=== PATIENT | male | born 1955 | race Caucasian/White ===

== ENCOUNTER 2018-11-01 14:55 | Emergency (ER) | payer MEDICARE, SELFPAY ==
[~2018-11-01] VITALS: Ht 180.3 cm; Wt 81.7 kg
[2018-11-01] MEDS ORDERED: ATOR10 PO (15:46)
[2018-11-01] MEDS ORDERED: ASPI81CH PO (15:46)
[2018-11-01] MEDS ORDERED: CEPH500 PO (16:39)
== END 2018-11-01 17:37 | disposition home or self-care (01) ==
LOC: ER 14:55
DX: S61.012A Laceration without foreign body of left thumb without damage to nail, initial encounter (principal); Z23 Encounter for immunization; Z79.82 Long term (current) use of aspirin; W45.8XXA Other foreign body or object entering through skin, initial encounter
CPT/HCPCS: 12001; 90471; 90714; 99282-25

== ENCOUNTER 2020-07-03 08:42 | Emergency (ER) | payer MEDICARE, SELFPAY ==
[~2020-07-03] VITALS: Ht 180.3 cm; Wt 81.7 kg
[~2020-07-03 08:42] MED LIST: ASPI81CH PO; ASPIR 8181 M1 PO; ATOR10 PO; CEFD300 PO; CEPH500 PO; EUTHYROX25 MCG PO; FINA5 PO; FISH OIL 1,201200 MG PO; Flomax0.4 MG PO; IBUP400 PO; LOPE2C PO; Norco 5-325 Ta1 EACH PO; PROBIOTIC1 EAC7 PO; Pyridium200 MG PO; TAMS.4ER PO; Zofran4 MG PO; [UNRECOGNIZED DRUG - OTHER] PO
== END 2020-07-03 12:30 | disposition home or self-care (01) ==
LOC: ER 08:42
DX: S61.213A Laceration without foreign body of left middle finger without damage to nail, initial encounter (principal); S66.103A Unspecified injury of flexor muscle, fascia and tendon of left middle finger at wrist and hand level, initial encounter; W45.8XXA Other foreign body or object entering through skin, initial encounter
CPT/HCPCS: 12002; 73140; 99283-25

== ENCOUNTER 2020-07-05 14:34 | Day surgery (SDC) | payer MEDICARE, SELFPAY ==
[~2020-07-05] VITALS: Ht 180.3 cm; Wt 78.9 kg
--- NOTE | 2020-07-05 15:34 | NUR ---
07/05/20 1534 Seda Clifton CALL LIGHT WITHIN REACH
--- NOTE | 2020-07-05 17:06 | NUR ---
07/05/20 1706 Kiki Husain SUTURES REMOVED AFTER PREP PER SURGEON REQUEST.
== END 2020-07-05 18:29 | disposition home or self-care (01) ==
LOC: ORSCSDS 14:34
PROVIDERS: Orthopaedic Surgery
PROC: 0HXGXZZ Transfer Left Hand Skin, External Approach (ICD-10-PCS; principal; 2020-07-05 15:45)
PROC: 0LQ80ZZ Repair Left Hand Tendon, Open Approach (ICD-10-PCS; principal; 2020-07-05 15:45)
DX: S61.213A Laceration without foreign body of left middle finger without damage to nail, initial encounter (principal); E78.5 Hyperlipidemia, unspecified; Z79.899 Other long term (current) drug therapy
CPT/HCPCS: J0690; J1100; J2250; J2370; J2405; J2704; J2795; J3010; J7120

== ENCOUNTER → 2021-04-30 | Outpatient (CLI) | payer MEDICARE, OTHER ==
[2021-04-30 15:18] LABS: BASOPHILS ABSOLUTE AUTO 0.02 K/mm3 (0.00-0.23); BASOPHILS PERCENT AUTO 0 % (0-2); EOSINOPHILS ABSOLUTE AUTO 0.04 K/mm3 (0.00-0.68); EOSINOPHILS PERCENT AUTO 1 % (0-6); Hematocrit 42.4 % (37.0-53.0); Hemoglobin 14.1 g/dL (13.5-17.5); IMMATURE GRAN ABSOLUTE AUTO 0.01 K/mm3 (0.00-0.10); IMMATURE GRAN PERCENT AUTO 0 % (0-1); LYMPHOCYTES ABSOLUTE AUTO 1.72 K/mm3 (0.84-5.20); LYMPHOCYTES PERCENT AUTO 36 % (21-46); MONOCYTES ABSOLUTE AUTO 0.48 K/mm3 (0.16-1.47); MONOCYTES PERCENT AUTO 10 % (4-13); Mean Corpuscular HGB 30.2 pg (26.0-34.0); Mean Corpuscular HGB Conc 33.3 g/dL (31.5-36.5); Mean Corpuscular Volume 91 fL (80-100); Mean Platelet Volume 10.1 fL (9.1-12.4); NEUTROPHILS ABSOLUTE AUTO 2.49 K/mm3 (1.96-9.15); NEUTROPHILS PERCENT AUTO 52 % (41-73); Platelet Count 221 K/mm3 (150-400); RDW Coefficient Variation 13.6 % (11.7-14.2); RDW Standard Deviation 45.4 fL (35.1-46.3); Red Blood Cell Count 4.67 M/mm3 (4.30-5.90); White Blood Cell Count 4.76 K/mm3 (4.00-11.30)
[2021-04-30 15:35] LABS: Alanine Aminotransfer (ALT/SGP 36 U/L (12-78); Albumin, Blood 3.8 g/dL (3.4-5.0); Albumin/Globulin Ratio 0.9 (0.8-1.8); Alk Phos 69 U/L (50-136); Anion Gap 5 mmol/L (6-16); Aspartate Aminotrans (AST/SGOT 27 U/L (12-37); Bilirubin, Total 0.8 mg/dL (0.1-1.0); Blood Urea Nitrogen 14 mg/dL (8-24); Bun/Creatinine Ratio 15.3 (12.0-20.0); CHOL/HDL RATIO 4.3; CO2, Blood 29 mmol/L (21-32); Calcium, Blood 8.4 mg/dL (8.5-10.1); Chloride, Blood 108 mmol/L (98-108); Cholesterol 175 mg/dL (50-200); Creatinine, Blood 0.91 mg/dL (0.60-1.20); Globulin, Blood 4.2 g/dL (2.2-4.0); Glomerular Filtration Rate >60 (60-); Glucose, Blood 97 mg/dL (70-99); HDL Cholesterol 41 mg/dL (>39); LDL/HDL RATIO 2.8; Low Density Lipoprotein Chol 114 mg/dL (0-110); Potassium, Blood 4.3 mmol/L (3.5-5.5); Sodium, Blood 142 mmol/L (136-145); Triglycerides 99 mg/dL (30-160); Very Low Density Lipoprot Chol 19 mg/dL (6-32)
== END | disposition home or self-care (01) ==
LOC: LAB SHORT 08:50
PROVIDERS: Family Medicine
DX: Z12.5 Encounter for screening for malignant neoplasm of prostate (principal); I10 Essential (primary) hypertension; E78.2 Mixed hyperlipidemia
CPT/HCPCS: 80053; 80061; 85025; G0103

== ENCOUNTER 2023-05-10 11:45 | Emergency (ER) | payer MEDICARE ==
[~2023-05-10] VITALS: Ht 180.3 cm; Wt 79.4 kg
[~2023-05-10 11:45] MED LIST changes: +ACET500 PO; +GABA300 PO; +Robaxin750 MG PO
[2023-05-10 12:59] LABS: BASOPHILS ABSOLUTE AUTO 0.03 K/mm3 (0.00-0.23); BASOPHILS PERCENT AUTO 1 % (0-2); EOSINOPHILS ABSOLUTE AUTO 0.05 K/mm3 (0.00-0.68); EOSINOPHILS PERCENT AUTO 1 % (0-6); Hematocrit 39.1 % (37.0-53.0); Hemoglobin 13.6 g/dL (13.5-17.5); IMMATURE GRAN ABSOLUTE AUTO 0.01 K/mm3 (0.00-0.10); IMMATURE GRAN PERCENT AUTO 0 % (0-1); LYMPHOCYTES ABSOLUTE AUTO 1.88 K/mm3 (0.84-5.20); LYMPHOCYTES PERCENT AUTO 35 % (21-46); MONOCYTES ABSOLUTE AUTO 0.68 K/mm3 (0.16-1.47); MONOCYTES PERCENT AUTO 13 % (4-13); Mean Corpuscular HGB 30.7 pg (26.0-34.0); Mean Corpuscular HGB Conc 34.8 g/dL (31.5-36.5); Mean Corpuscular Volume 88 fL (80-100); Mean Platelet Volume 9.5 fL (9.1-12.4); NEUTROPHILS ABSOLUTE AUTO 2.75 K/mm3 (1.96-9.15); NEUTROPHILS PERCENT AUTO 51 % (41-73); Platelet Count 207 K/mm3 (150-400); RDW Coefficient Variation 13.7 % (11.7-14.2); RDW Standard Deviation 44.7 fL (35.1-46.3); Red Blood Cell Count 4.43 M/mm3 (4.30-5.90)
[2023-05-10 13:08] LABS: Source, Urine Clean Catch
[2023-05-10 13:17] LABS: Albumin, Blood 3.8 g/dL (3.4-5.0); Albumin/Globulin Ratio 0.8 (0.8-1.8); Bilirubin, Total 0.9 mg/dL (0.1-1.0); Calcium, Blood 8.7 mg/dL (8.5-10.1); Creatinine, Blood 0.9 mg/dL (0.60-1.20); Globulin, Blood 4.6 g/dL (2.2-4.0); Potassium, Blood 4.3 mmol/L (3.5-5.5); Total Protein, Blood 8.4 g/dL (6.4-8.2)
[2023-05-10 13:24] LABS: Appearance, Urine Clear (Clear); Bilirubin, Urine Neg (Neg); Blood, Urine Neg (Neg); Glucose Qualitative, Urine Neg (Neg); Ketones, Urine Neg (Neg); Leukocyte Esterase, Urine Neg (Neg); Nitrite, Urine Neg (Neg); Protein, Urine Neg (Neg); Urobilinogen, Urine NORM (Normal)
[2023-05-10 13:50] LABS: Color, Urine Pale Yellow (P-Yellow)
[2023-05-10 15:26] VITALS: BP 176/103
== END 2023-05-10 16:00 | disposition home or self-care (01) ==
LOC: ER 11:45
PROVIDERS: Physician Assistant
DX: M54.9 Dorsalgia, unspecified (principal); N40.0 Benign prostatic hyperplasia without lower urinary tract symptoms; I10 Essential (primary) hypertension; E78.5 Hyperlipidemia, unspecified; Z79.899 Other long term (current) drug therapy
CPT/HCPCS: 80053; 81003; 85025; 99284

== ENCOUNTER 2024-01-30 16:38 | Observation (INO) | payer OTHER, MEDICARE ==
[~2024-01-30] VITALS: Ht 180.3 cm; Wt 73.2 kg
[2024-01-30 17:47] LABS: BASOPHILS ABSOLUTE AUTO 0.02 K/mm3 (0.00-0.23); BASOPHILS PERCENT AUTO 0 % (0-2); EOSINOPHILS ABSOLUTE AUTO 0.01 K/mm3 (0.00-0.68); EOSINOPHILS PERCENT AUTO 0 % (0-6); Hematocrit 39.7 % (37.0-53.0); Hemoglobin 13.5 g/dL (13.5-17.5); IMMATURE GRAN ABSOLUTE AUTO 0.03 K/mm3 (0.00-0.10); IMMATURE GRAN PERCENT AUTO 0 % (0-1); LYMPHOCYTES ABSOLUTE AUTO 1.73 K/mm3 (0.84-5.20); LYMPHOCYTES PERCENT AUTO 21 % (21-46); MONOCYTES ABSOLUTE AUTO 1.15 K/mm3 (0.16-1.47); MONOCYTES PERCENT AUTO 14 % (4-13); Mean Corpuscular Volume 88 fL (80-100); Mean Platelet Volume 9.6 fL (9.1-12.4); NEUTROPHILS ABSOLUTE AUTO 5.39 K/mm3 (1.96-9.15); NEUTROPHILS PERCENT AUTO 65 % (41-73); Platelet Count 181 K/mm3 (150-400); RDW Coefficient Variation 14.5 % (11.7-14.2); RDW Standard Deviation 46.3 fL (35.1-46.3); White Blood Cell Count 8.33 K/mm3 (4.00-11.30)
[2024-01-30 18:03] LABS: Albumin, Blood 4.1 g/dL (3.4-5.0); Bilirubin, Total 1.2 mg/dL (0.1-1.0); Bun/Creatinine Ratio 19.7 (12.0-20.0); Calcium, Blood 8.9 mg/dL (8.5-10.1); Creatinine, Blood 0.91 mg/dL (0.60-1.20); Globulin, Blood 4.2 g/dL (2.2-4.0); Potassium, Blood 3.9 mmol/L (3.5-5.5); Total Protein, Blood 8.3 g/dL (6.4-8.2)
[2024-01-30] MEDS ORDERED: Acetaminophen 500 MG Tab PO ONE (20:30)
[2024-01-30] MEDS ORDERED: Aspirin 81 MG Chew PO ONE (21:35)
[2024-01-30 22:22] LABS: Source, Urine Clean Catch
[2024-01-30] MEDS ORDERED: Nitroglycerin 1 INCH/GM PKT TOP ONE ×2 (22:25→23:25)
[2024-01-30 22:28] LABS: Appearance, Urine Clear (Clear); Bilirubin, Urine Neg (Neg); Blood, Urine Neg (Neg); Color, Urine Pale Yellow (P-Yellow); Glucose Qualitative, Urine Neg (Neg); Ketones, Urine Neg (Neg); Leukocyte Esterase, Urine Neg (Neg); Nitrite, Urine Neg (Neg); Protein, Urine Neg (Neg); Urobilinogen, Urine NORM (Normal); pH, Urine 6.5 (5.0-8.0)
[2024-01-30] MEDS ORDERED: Morphine Sulfate 4 MG/1 ML Injection IV ONE (23:25)
[2024-01-30] MEDS ORDERED: Ondansetron HCl 2 MG / ML 2ML Vial IV ONE (23:25)
[2024-01-30] MEDS ORDERED: Mag Hydrox/AL Hydrox/Simeth 30 ML UDC PO ONE (23:30)
[2024-01-30] MEDS ORDERED: Famotidine 10 MG/ML 2ML Vial IV ONE (23:30)
[2024-01-31] MEDS ORDERED: Acetaminophen 325 MG TABLET PO PRN (01:15)
[2024-01-31] MEDS ORDERED: FentaNYL Citrate 50 MCG/ML 2 ML Injection IV PRN ×2 (01:15→03:40)
[2024-01-31] MEDS ORDERED: Bisacodyl 10 MG Supp PR PRN (01:15)
[2024-01-31] MEDS ORDERED: Magnesium Hydroxide Conc 10 ML UDC PO PRN (01:15)
[2024-01-31] MEDS ORDERED: FLU VACC TS2024-25(6MOS UP)/PF 45 MCG/0.5 ML SYRINGE IM SCH (01:15)
[2024-01-31] MEDS ORDERED: SILDENAFIL CITR20 M1 PO (02:00)
[2024-01-31 02:52] VITALS: BP 149/79
--- NOTE | 2024-01-31 05:51 | NUR ---
SHIFT SUMMARY PATIENT IS ALERT AND ORIENTED. PATIENT HAS HAD NO ACUTE EVENTS THIS SHIFT. VITAL SIGNS REVIEWED. PATIENT IS ADMITTED FOR CHEST PAIN. PATIENT HAS NOT HAD ANY COMPLAINTS OF PAIN, NAUSEA, SOB OR VOMITTING SINCE ARRIVAL TO FLOOR. PATIENT HAS BEEN SLEEPING COMFORTABLE ALL SHIFT SINCE ARRIVAL. PATIENT IS ON TELE WITH NO EVENTS. BED ALARM ON. BED IN LOCKED AND LOWEST POSITION. CALL LIGHT IN PLACE. WILL MONITOR UNTIL SHIFT CHANGE.
[2024-01-31 05:57] LABS: BASOPHILS ABSOLUTE AUTO 0.01 K/mm3 (0.00-0.23); BASOPHILS PERCENT AUTO 0 % (0-2); EOSINOPHILS ABSOLUTE AUTO 0.01 K/mm3 (0.00-0.68); EOSINOPHILS PERCENT AUTO 0 % (0-6); Hematocrit 36.6 % (37.0-53.0); Hemoglobin 12.5 g/dL (13.5-17.5); IMMATURE GRAN ABSOLUTE AUTO 0.04 K/mm3 (0.00-0.10); IMMATURE GRAN PERCENT AUTO 1 % (0-1); LYMPHOCYTES ABSOLUTE AUTO 1.63 K/mm3 (0.84-5.20); LYMPHOCYTES PERCENT AUTO 20 % (21-46); MONOCYTES PERCENT AUTO 16 % (4-13); Mean Corpuscular HGB 30.4 pg (26.0-34.0); Mean Corpuscular HGB Conc 34.2 g/dL (31.5-36.5); Mean Corpuscular Volume 89 fL (80-100); Mean Platelet Volume 9.4 fL (9.1-12.4); NEUTROPHILS ABSOLUTE AUTO 5.32 K/mm3 (1.96-9.15); NEUTROPHILS PERCENT AUTO 64 % (41-73); Platelet Count 151 K/mm3 (150-400); RDW Coefficient Variation 14.6 % (11.7-14.2); RDW Standard Deviation 47.3 fL (35.1-46.3); Red Blood Cell Count 4.11 M/mm3 (4.30-5.90); White Blood Cell Count 8.31 K/mm3 (4.00-11.30)
[2024-01-31 06:33] LABS: Albumin, Blood 3.5 g/dL (3.4-5.0); Albumin/Globulin Ratio 0.9 (0.8-1.8); Bilirubin, Total 1.5 mg/dL (0.1-1.0); Bun/Creatinine Ratio 15.5 (12.0-20.0); Cholesterol 152 mg/dL (50-200); Creatinine, Blood 0.84 mg/dL (0.60-1.20); HDL Cholesterol 50 mg/dL (>39); LDL/HDL RATIO 1.9; Low Density Lipoprotein Chol 93 mg/dL (0-110); Potassium, Blood 4.6 mmol/L (3.5-5.5); Total Protein, Blood 7.5 g/dL (6.4-8.2); Triglycerides 45 mg/dL (30-160); Very Low Density Lipoprot Chol 9 mg/dL (6-32)
[2024-01-31 07:34] VITALS: BP 131/75
[2024-01-31] MEDS ORDERED: Sennosides 8.6 MG Tab PO SCH (09:00)
[2024-01-31] MEDS ORDERED: Enoxaparin 40 MG/0.4 ML SYR SC SCH (09:00)
[2024-01-31] MEDS ORDERED: Atorvastatin 10 MG Tab PO SCH (09:00)
[2024-01-31] MEDS ORDERED: Docusate Sodium 100 MG Cap PO SCH (09:00)
[2024-01-31 09:36] VITALS: BP 146/74
--- NOTE | 2024-01-31 09:36 | NUR ---
THIS RN RECEIVED A CALL FROM [facility] NOTIFIYING THAT THE PATIENT HAS HAD ST AND QRS CHANGES. MD NOTIFIED, EKG PERFORMED, VITALS TAKEN
[2024-01-31] MEDS ORDERED: Aspirin 81 MG Chew PO SCH (11:00)
[2024-01-31 16:21] VITALS: BP 136/78
--- NOTE | 2024-01-31 16:48 | NUR ---
SHIFT NOTE: PT REPORTS IMPROVED PAIN IN CHEST. HE IS IND IN ROOM ON TELE WITH NO ACUTE CHANGES SINCE THIS AM (SEE PREVIOUS NOTE). PT TO BE NPO AT MIDNIGHT FOR SECOND HALF OF STRESS TEST ON 01/31. WILL CONTINUE TO MONITOR AND REPORT TO ONCOMING RN
[2024-01-31] MEDS ORDERED: BROMFENAC BOTHEYES SCH (17:00)
[2024-01-31] MEDS ORDERED: MOXIFLOXACIN BOTHEYES SCH (17:00)
[2024-01-31] MEDS ORDERED: [UNRECOGNIZED DRUG - OTHER] BOTHEYES SCH (17:00)
[2024-01-31 19:23] VITALS: BP 136/71
[2024-02-01 03:42] VITALS: BP 130/77
[2024-02-01 07:31] VITALS: BP 122/84
--- NOTE | 2024-02-01 07:45 | NUR ---
SHIFT SUMMARY PT IS A&OX4, APPRECIATIVE AND COMPLIANT WITH CARES. VSS ON RA. PER TELEMETRY PT IS SR @ 83. NO C/O CP/PRESSURE THIS SHIFT. PT IS TOLERATING A HEART HEALTHY DIET, NPO AFTER MN BESIDES WATER FOR STRESS TEST IN AM. PT IS UP AD JANEY IN ROOM INDEPENDENTLY. PT DID TAKE A SHOWER TONIGHT. VOIDING IN TOILET, NO BM THIS SHIFT. BED IN LOWEST POSITION, CALL LIGHT WITHIN REACH.
[2024-02-01] MEDS ORDERED: Regadenoson 0.4 MG/5 ML SYRINGE ONE (07:57)
[2024-02-01] MEDS ORDERED: Aminophylline 250MG / 10ML 10 ML Vial ONE (07:57)
[2024-02-01 15:27] VITALS: BP 102/89
[2024-02-01] MEDS ORDERED: OMEP20ER PO (15:39)
--- NOTE | 2024-02-01 16:29 | NUR ---
DISCHARGE SUMMARY: PT DC AT 1625. REFUSED WHEELCHAIR. IV AND TELE REMOVED WITHOUT INCIDENT. PT RECEPTIVE TO EDUCATION AND INFORMED ON DISCHARGE PLANS TO FOLLOW UP WITH PCP. CONCERNED WITH NO CONCRETE RESULTS FROM TESTS BUT UNDERSTANDING. PT AOX4 IN GOOD MOOD AND PLEASANT AFFECT. WALKED OUT PATIENT ENTRANCE INTO 'S CAR UNASSISTED.
--- NOTE | 2024-02-01 16:48 | NUR ---
THIS PLATE PAINTER HAS REVIEWED AND AGREES WITH ALL NOTES AND ASSESSMENTS BY MANDI HAWK.
== END 2024-02-01 16:34 | disposition home or self-care (01) ==
LOC: ER 16:38 → MEDS 16:39
PROVIDERS: Family Medicine; Physician Assistant; Student in an Organized Health Care Education/Training Program; ADMIT Internal Medicine
DX: I25.118 Atherosclerotic heart disease of native coronary artery with other forms of angina pectoris (principal); E78.5 Hyperlipidemia, unspecified; G57.63 Lesion of plantar nerve, bilateral lower limbs; Z79.899 Other long term (current) drug therapy
CPT/HCPCS: 36415; 71260; 78452; 80053; 80061; 81003; 83036; 83690; 83735; 83880; 84100; 84484; 85025; 93005; 93010; 93017; 93306; 96372; 96374-59; 96375; 96375-59; 99285-25; A9270; A9500; G0378; J0280; J1650; J2405; J2785; J3010; Q9967

== ENCOUNTER 2024-04-09 17:19 | Observation (INO) | payer OTHER, MEDICARE ==
[~2024-04-09] VITALS: Ht 180.3 cm; Wt 76.4 kg
[~2024-04-09 17:19] MED LIST changes: +OMEP20ER PO; +SILDENAFIL CITR20 M1 PO
[2024-04-09 17:59] LABS: BASOPHILS ABSOLUTE AUTO 0.02 K/mm3 (0.00-0.23); BASOPHILS PERCENT AUTO 0 % (0-2); EOSINOPHILS ABSOLUTE AUTO 0.02 K/mm3 (0.00-0.68); EOSINOPHILS PERCENT AUTO 0 % (0-6); Hematocrit 39.8 % (37.0-53.0); Hemoglobin 13.2 g/dL (13.5-17.5); IMMATURE GRAN ABSOLUTE AUTO 0.01 K/mm3 (0.00-0.10); IMMATURE GRAN PERCENT AUTO 0 % (0-1); LYMPHOCYTES ABSOLUTE AUTO 1.87 K/mm3 (0.84-5.20); LYMPHOCYTES PERCENT AUTO 35 % (21-46); MONOCYTES ABSOLUTE AUTO 0.45 K/mm3 (0.16-1.47); MONOCYTES PERCENT AUTO 9 % (4-13); Mean Corpuscular HGB Conc 33.2 g/dL (31.5-36.5); Mean Corpuscular Volume 91 fL (80-100); Mean Platelet Volume 9.7 fL (9.1-12.4); NEUTROPHILS ABSOLUTE AUTO 2.95 K/mm3 (1.96-9.15); NEUTROPHILS PERCENT AUTO 55 % (41-73); Platelet Count 166 K/mm3 (150-400); RDW Coefficient Variation 14.2 % (11.7-14.2); RDW Standard Deviation 46.8 fL (35.1-46.3); White Blood Cell Count 5.32 K/mm3 (4.00-11.30)
[2024-04-09 18:24] LABS: Albumin, Blood 3.9 g/dL (3.4-5.0); Albumin/Globulin Ratio 0.9 (0.8-1.8); Bilirubin, Total 0.7 mg/dL (0.1-1.0); Bun/Creatinine Ratio 23.2 (12.0-20.0); Calcium, Blood 8.7 mg/dL (8.5-10.1); Creatinine, Blood 0.91 mg/dL (0.60-1.20); Globulin, Blood 4.4 g/dL (2.2-4.0); Potassium, Blood 3.9 mmol/L (3.5-5.5); Total Protein, Blood 8.3 g/dL (6.4-8.2)
[2024-04-09] MEDS ORDERED: Ondansetron HCl 2 MG / ML 2ML Vial IV PRN (20:55)
[2024-04-09] MEDS ORDERED: FLU VACC TS2024-25(6MOS UP)/PF 45 MCG/0.5 ML SYRINGE IM ONE (22:00)
[2024-04-09 22:08] VITALS: BP 169/86
[2024-04-10 05:26] VITALS: BP 154/93
[2024-04-10] MEDS ORDERED: Omeprazole 20 MG CapCR PO SCH (06:00)
--- NOTE | 2024-04-10 06:22 | NUR ---
SHIFT SUMMARY PATIENT IS ALERT AND ORIENTED. PATIENT HAS HAD NO ACUTE EVENTS THIS SHIFT. VITAL SIGNS REVIEWED. PATIENT HAD A SYNCOPE EPISODE PRIOR TO ARRIVAL TO ADMISSION. PATIENT IS AWAITING A ZIO PATCH BEFORE DISCHARGE. PATIENT HAS NO COMPLAINTS OF PAIN, NAUSEA, SOB OR VOMITTING. BED IN LOCKED AND LOWEST POSITION. CALL LIGHT IN PLACE. WILL MONITOR UNTIL SHIFT CHANGE.
[2024-04-10 08:13] VITALS: BP 167/79
[2024-04-10] MEDS ORDERED: Enoxaparin 40 MG/0.4 ML SYR SC SCH (09:00)
[2024-04-10] MEDS ORDERED: Atorvastatin 10 MG Tab PO SCH (09:00)
[2024-04-10] MEDS ORDERED: Acetaminophen 325 MG TABLET PO PRN (11:55)
--- NOTE | 2024-04-10 15:47 | NUR ---
SHIFT SUMMARY MR ESCOBAR HAS A MILD HEADACHE, TYLENOL DIDN'T HELP. HE DENIES ANY CHEST PAIN, NO DIZZYNESS. HE AMBULATED IN THE HALLS WITHOUT ANY FEELINGS OF DIZZYNESS. SINUS DEE/ SINUS RHYTHM ON TELE, NO CALLS FROM BIOINFORMATICS ENGINEER. GOOD APPETITE, NO NAUSEA. BED LOW, CALL LIGHT IN REACH.
[2024-04-10 16:05] VITALS: BP 144/83
[2024-04-10 19:25] VITALS: BP 150/80
[2024-04-11 03:57] VITALS: BP 133/80
--- NOTE | 2024-04-11 07:21 | NUR ---
AAOX4, INDEPENDENT IN ROOM. TELE IN PLACE SR 62. SLEPT THROUGHOUT THE NIGHT, UNEVENTFUL NIGHT. PLAN OF CARE IS DC HOME WITH LONNIE PATCH.
[2024-04-11 07:42] VITALS: BP 140/83
[2024-04-11] MEDS ORDERED: Levothyroxine Sodium 0.125 MG Tab PO SCH (08:00)
[2024-04-11] MEDS ORDERED: Losartan Potassium 50 MG Tab PO SCH (09:00)
[2024-04-11] MEDS ORDERED: Levothyroxine Sodium 0.025 MG Tab PO SCH (11:00)
[2024-04-11] MEDS ORDERED: LOSA25 PO (12:02)
[2024-04-11] MEDS ORDERED: LEVSOD25 PO (12:02)
--- NOTE | 2024-04-11 12:55 | NUR ---
DISCHARGE NOTE- PT WAS GIVEN VERBAL AND WRITTEN DISCHARGE INSTRUCTIONS AND ACKNOWLEDGED UNDERSTANDING OF THEM. PT HAD HIS ZIO PATCH PLACED BY THE [facility], IV AND TELE WERE DC'D PRIOR TO DISCHARGE. PT DRESSED HIMSELF AND WAS ESCORTED OUT VIA WC. NO S&S OF DISTRESS NOTED AT THE TIME OF DISCHARGE.
[2024-04-12] MEDS ORDERED: Losartan Potassium 25 MG Tab PO SCH (09:00)
== END 2024-04-11 12:54 | disposition home or self-care (01) ==
LOC: ER 17:19 → MEDS 17:20
PROVIDERS: Emergency Medicine; ADMIT Internal Medicine
DX: R55 Syncope and collapse (principal); R94.31 Abnormal electrocardiogram [ECG] [EKG]; I44.7 Left bundle-branch block, unspecified; R00.1 Bradycardia, unspecified; I10 Essential (primary) hypertension; E03.9 Hypothyroidism, unspecified; E78.5 Hyperlipidemia, unspecified; K21.9 Gastro-esophageal reflux disease without esophagitis; N40.0 Benign prostatic hyperplasia without lower urinary tract symptoms; Z79.899 Other long term (current) drug therapy
CPT/HCPCS: 36415; 70450; 71046; 80053; 83735; 84439; 84443; 84484; 85025; 93005; 93010; 93246; 96372; 99285-25; A9270; G0378; J1650

== ENCOUNTER 2024-06-03 18:31 | Inpatient (IN) | payer OTHER, MEDICARE ==
[~2024-06-03] VITALS: Ht 180.3 cm; Wt 77.1 kg
[~2024-06-03 18:31] MED LIST changes: +Enoxaparin 40 MG/0.4 ML SYR SC SCH; +LEVSOD25 PO; +LOSA25 PO
[2024-06-03 19:56] LABS: BASOPHILS ABSOLUTE AUTO 0.01 K/mm3 (0.00-0.23); BASOPHILS PERCENT AUTO 0 % (0-2); EOSINOPHILS ABSOLUTE AUTO 0.06 K/mm3 (0.00-0.68); EOSINOPHILS PERCENT AUTO 1 % (0-6); Hematocrit 39.2 % (37.0-53.0); IMMATURE GRAN ABSOLUTE AUTO 0.02 K/mm3 (0.00-0.10); IMMATURE GRAN PERCENT AUTO 0 % (0-1); LYMPHOCYTES PERCENT AUTO 39 % (21-46); MONOCYTES ABSOLUTE AUTO 0.55 K/mm3 (0.16-1.47); MONOCYTES PERCENT AUTO 11 % (4-13); Mean Corpuscular HGB 30.2 pg (26.0-34.0); Mean Corpuscular HGB Conc 33.2 g/dL (31.5-36.5); Mean Corpuscular Volume 91 fL (80-100); NEUTROPHILS ABSOLUTE AUTO 2.38 K/mm3 (1.96-9.15); NEUTROPHILS PERCENT AUTO 48 % (41-73); Platelet Count 158 K/mm3 (150-400); RDW Coefficient Variation 14.6 % (11.7-14.2); RDW Standard Deviation 48.9 fL (35.1-46.3); White Blood Cell Count 4.92 K/mm3 (4.00-11.30)
[2024-06-03 20:20] LABS: Albumin, Blood 3.9 g/dL (3.4-5.0); Albumin/Globulin Ratio 0.9 (0.8-1.8); Bilirubin, Total 0.6 mg/dL (0.1-1.0); Bun/Creatinine Ratio 21.4 (12.0-20.0); Calcium, Blood 8.6 mg/dL (8.5-10.1); Creatinine, Blood 0.94 mg/dL (0.60-1.20); Globulin, Blood 4.3 g/dL (2.2-4.0); Potassium, Blood 3.9 mmol/L (3.5-5.5); Total Protein, Blood 8.2 g/dL (6.4-8.2)
[2024-06-03] MEDS ORDERED: FLU VACC TS2024-25(6MOS UP)/PF 45 MCG/0.5 ML SYRINGE IM ONE (23:15)
[2024-06-03] MEDS ORDERED: NS 1,000 ML IV SCH (23:15)
[2024-06-03] MEDS ORDERED: Ondansetron HCl 2 MG / ML 2ML Vial IV PRN (23:15)
[2024-06-03 23:59] LABS: Magnesium, Blood 1.9 mg/dL (1.6-2.4)
[2024-06-04] VITALS (14 sets, daily range): BP systolic 120–158; BP diastolic 64–85
--- NOTE | 2024-06-04 05:44 | NUR ---
SHIFT SUMMARY PT ARRIVED TO UNIT AT 0445. A&OX4. VSS ON RA. PT ON TELE RUNNING SB 48-50's. PT HAS NO C/O CP, SOB, DIZZINESS, NAUSEA OF ANY SORTS. PT STATING HE FEELS FINE NOW. PT AMBULATING TO BATHROOM WITH NURSES ASSIST WHILE HOOKED UP TO FLUIDS. NS RUNNING @ 75CC/HR. NO FURTHER QUESTIONS OR CONCERNS AT THIS TIME. WILL REPORT TO ONCOMING NURSE.
[2024-06-04 07:25] LABS: BASOPHILS ABSOLUTE AUTO 0.01 K/mm3 (0.00-0.23); BASOPHILS PERCENT AUTO 0 % (0-2); EOSINOPHILS ABSOLUTE AUTO 0.06 K/mm3 (0.00-0.68); EOSINOPHILS PERCENT AUTO 2 % (0-6); Hematocrit 36.5 % (37.0-53.0); Hemoglobin 12.3 g/dL (13.5-17.5); IMMATURE GRAN ABSOLUTE AUTO 0.01 K/mm3 (0.00-0.10); IMMATURE GRAN PERCENT AUTO 0 % (0-1); LYMPHOCYTES ABSOLUTE AUTO 1.74 K/mm3 (0.84-5.20); LYMPHOCYTES PERCENT AUTO 44 % (21-46); MONOCYTES ABSOLUTE AUTO 0.51 K/mm3 (0.16-1.47); MONOCYTES PERCENT AUTO 13 % (4-13); Mean Corpuscular HGB 30.8 pg (26.0-34.0); Mean Corpuscular HGB Conc 33.7 g/dL (31.5-36.5); Mean Corpuscular Volume 91 fL (80-100); Mean Platelet Volume 9.3 fL (9.1-12.4); NEUTROPHILS ABSOLUTE AUTO 1.59 K/mm3 (1.96-9.15); NEUTROPHILS PERCENT AUTO 41 % (41-73); Platelet Count 143 K/mm3 (150-400); RDW Coefficient Variation 14.6 % (11.7-14.2); RDW Standard Deviation 49.1 fL (35.1-46.3); White Blood Cell Count 3.92 K/mm3 (4.00-11.30)
[2024-06-04 07:51] LABS: Albumin, Blood 3.5 g/dL (3.4-5.0); Albumin/Globulin Ratio 0.9 (0.8-1.8); Bun/Creatinine Ratio 17.3 (12.0-20.0); Calcium, Blood 8.5 mg/dL (8.5-10.1); Creatinine, Blood 0.92 mg/dL (0.60-1.20); Globulin, Blood 3.8 g/dL (2.2-4.0); Potassium, Blood 4.2 mmol/L (3.5-5.5); Total Protein, Blood 7.3 g/dL (6.4-8.2)
--- NOTE | 2024-06-04 08:37 | NUR ---
ORTHOSTATIC VITAL SIGNS 06/04/24 ABOUT 0835 LAYING: BP 154/72 (96) HR 51 SITTIN/76 (98) HR 56 STANDIN/77 (91) HR 67 DISCUSSED WITH MILLINERY BLOCKER.
[2024-06-04] MEDS ORDERED: NS 1,000 ML IV SCH ×2 (08:50→15:10)
[2024-06-04 11:07] LABS: Source, Urine Clean Catch
[2024-06-04 11:16] LABS: Bilirubin, Urine Neg (Neg); Blood, Urine Neg (Neg); Glucose Qualitative, Urine Neg (Neg); Ketones, Urine Neg (Neg); Leukocyte Esterase, Urine Neg (Neg); Nitrite, Urine Neg (Neg); Protein, Urine Neg (Neg); Urobilinogen, Urine NORM (Normal)
[2024-06-04 11:37] LABS: Appearance, Urine Clear (Clear); Color, Urine Yellow (P-Yellow)
--- NOTE | 2024-06-04 11:45 | NUR ---
MORNING SUMMARY THE PT IS A&OX4, SBA D/T SYNCOPAL EPISODES, AND HE CAN MAKES HIS NEEDS KNOWN. THIS MORNING ORTHOSTATIC VITAL SIGNS WERE DONE AND THEY WERE POSITIVE. DR. WYATT AND DR. JIMÉNEZ AWARE. WHEN MANUFACTURING ASSISTANT WAS IN THE ROOM HE DISCUSSED DOING AN ANGIOGRAM ON THE PT TODAY OR TOMORROW BUT WILL LET US KNOW WITHIN THE NEXT FEW HOURS. THE PT HAS BEEN NPO SINCE ABOUT 1700 06/03. ON TELE HE IS SB/SR BBB FHB 40'S-70'S. THE PT HAS DENIED ANY ANGINA, CHEST PRESSURE, LIGHT HEADEDNESS, OR "FEELING" OF PASSING OUT. HE REMAINS ON FLUIDS AT 75ML/HR. DR. JIMÉNEZ WANTED TO MAKE THE FLUIDS CONTINOUS AT THIS TIME. THE PT'S HAS BEEN AT THE BEDSIDE AND UPDATED ON CARE. THE PT IS TRYING TO GET AHOLD OF HIS BROTHER PER DR. WYATT BECAUSE THEY BOTH HAVE CARDIAC HISTORY AND PACEMAKERS. SEE NOTES FOR UPDATES.
[2024-06-04] MEDS ORDERED: NS 300 ML IV ONE (12:25)
[2024-06-04] MEDS ORDERED: Aspirin 325 MG Tab PO ONE (12:30)
[2024-06-04] MEDS ORDERED: NS 250 ML IV ONE (12:31)
[2024-06-04] MEDS ORDERED: Nitroglycerin 2 MG/20 ML BTL ONE (12:31)
[2024-06-04] MEDS ORDERED: NS 1,000 ML IV ONE ×2 (12:31→12:37)
[2024-06-04] MEDS ORDERED: Heparin Sodium 1000 Units/ML 10ML MDV ONE ×2 (12:31→13:32)
[2024-06-04] MEDS ORDERED: Verapamil HCL 2.5 MG/ML 2ML Injection ONE (12:31)
[2024-06-04] MEDS ORDERED: Midazolam HCl 1MG / ML 2ML Vial ONE (12:37)
[2024-06-04] MEDS ORDERED: FentaNYL Citrate 50 MCG/ML 2 ML Injection ONE (12:37)
[2024-06-04] MEDS ORDERED: Ticagrelor 90 MG TABLET ONE (13:45)
--- NOTE | 2024-06-04 14:49 | NUR ---
Update: Pt arrived to room PCU1 from [facility]. R radial site with no oozing or bleeding noted. R hand very purple in color but L hand also discolored. Pt states that this is normal for him from his hands "being cold". Pt given post angio activity restrictions. VSS. Will continue to monitor and call light in reach.
--- NOTE | 2024-06-04 15:25 | NUR ---
PT BACK FROM ANGIOGRAM POST STENTING TO DISTAL LAD. RIGHT WIRST ACCESS. THE PT DOES HAVE DISCOLORATION IN HIS DISTAL FINGERS BUT CAP REFILL <3 SECS. SITE W/ SOME SWELLING ABOVE TR BAND, NO HEMATOMA OR BLEEDING NOTED. THE TR BAND IS INTACT W/ 12CC'S OF AIR. ARM BOARD IN PLACE. PT'S HAS THE PT'S STENT CARD. POST EKG TAKEN. FLUIDS PER EMAR. VS STABLE. SEE NOTES FOR UPDATES.
--- NOTE | 2024-06-04 17:28 | NUR ---
SINCE ABOUT 1600 PT BEGAN TO FORM MORE SWELLING AND DEVELOPING A HEMATOMA ABOVE THE TR BAND. MANNUAL PRESSURE WAS HELD FOR ABOUT THIRTY MINUTES. DR. WYATT AWAKRE AND WILL SEE THE PT THIS AFTERNOON. D/T MORE DISCOLORATION IN THE PT'S FINGERS, INCREASED ACHING AT THE SITE, AND CAP REFILL < 3 SEC'S, 2CC'S WERE TAKEN OUT AT ABOUT 1700 AFTER DISCUSSING THE PT'S ANGIOSITE WITH THE CHARGE NURSE. WHEN REASSESSING THE SITE 15 MINUTES LATER THE HEMTOMA REAPPEARED AND IS BECOMING MORE BLUE IN COLOR. MANNUAL PRESSURE BEING HELD AT THIS TIME. CHARGE NURSE INVOLVED. SEE NOTES FOR UPDATES.
[2024-06-04] MEDS ORDERED: Acetaminophen 325 MG TABLET PO PRN (18:25)
--- NOTE | 2024-06-04 18:40 | NUR ---
RIGHT RADIAL SITE UPDATE. AFTER AN ADDITIONAL 2O MINUTES OF MANNUAL PRESSURE WAS HELD, THE PT'S HEMATOMA HAS IMPROVED AND MILD SWELLING NOW ABOVE TR BAND. THERE IS STILL 4CC'S IN THE TRBAND AT THIS TIME. SITE W/O ANY BLEEDING. THE PT DID CONTINUE TO C/O PAIN IN HIS RIGHT WRIST. TYLENOL 650MG GIVEN TO THE PT. 1000CC/1400CC'S FLUIDS GIVEN PER EMAR. SEE NOTES FOR ANY UPDATES.
[2024-06-04] MEDS ORDERED: Ticagrelor 90 MG TABLET PO SCH (21:00)
[2024-06-05] VITALS: BP 132/83
[2024-06-05 04:00] VITALS: BP 136/83
[2024-06-05 04:29] LABS: Hematocrit 35.8 % (37.0-53.0); Mean Corpuscular HGB 30.2 pg (26.0-34.0); Mean Corpuscular HGB Conc 33.5 g/dL (31.5-36.5); Mean Corpuscular Volume 90 fL (80-100); Mean Platelet Volume 10.2 fL (9.1-12.4); Platelet Count 157 K/mm3 (150-400); RDW Coefficient Variation 14.5 % (11.7-14.2); RDW Standard Deviation 47.9 fL (35.1-46.3); Red Blood Cell Count 3.97 M/mm3 (4.30-5.90); White Blood Cell Count 6.47 K/mm3 (4.00-11.30)
[2024-06-05 05:02] LABS: Albumin, Blood 3.3 g/dL (3.4-5.0); Anion Gap 8 mmol/L (3-11); Blood Urea Nitrogen 16 mg/dL (8-24); Bun/Creatinine Ratio 18.2 (12.0-20.0); CO2, Blood 26 mmol/L (21-32); Calcium, Blood 8.5 mg/dL (8.5-10.1); Chloride, Blood 114 mmol/L (98-108); Creatinine, Blood 0.88 mg/dL (0.60-1.20); Glomerular Filtration Rate 93 (60-); Glucose, Blood 90 mg/dL (70-99); Phosphorus, Blood 2.8 mg/dL (2.5-4.9); Potassium, Blood 4.1 mmol/L (3.5-5.5); Sodium, Blood 144 mmol/L (136-145); Thyroxine (T4) 5.3 ug/dL (4.5-12.1)
--- NOTE | 2024-06-05 05:52 | NUR ---
SHIFT SUMMARY ASSUMED CARE OF PT AT APPROX 1900. PT PRESENTED W TR BAND STILL IN PLACE WITH 2mL OF AIR. REMOVED AIR AND TR BAND; NO DRAINAGE PRESENT AND MILD SWELLING TO PROXIMAL SITE. MD CAME TO BEDSIDE TO EVALUATE PT. MD PLACED MANUAL BP CUFF TO SITE AND HELD PRESSURE AT 100mmHg WITH HEMOSTATS. VERBAL ORDER TO RELEASE 10mmHg Q10m UNTIL ALL AIR RELEASED. AT ABOUT 70mmHg PT'S HAND STARTED TO SWELL AND BECOME SLIGHTLY CYANOTIC AND CAP REFILL <3SECS; CONTACTED MD; VERBAL ORDER CHANGED TO REMOVE 10mmHg Q5m. BLOOD FLOW INCREASED TO THE HAND AT ABOUT 40mmHg AND CAP REFILL REMAINED >3SEC. PT'S SITE REMAINED DRY AND CLEAN WITH NO DISCHARGE. PT A&O4, COOPERATIVE IN CARE AND ABLE TO EXPRESS NEEDS. VSS AND REMAINED ON RA. NO SOB OR CP/PRESSURE REPORTED FROM PT. AM EKG COMPLETED. AND RIGHT HAND REMAINED SLIGHTLY SWOLLEN THAN LEFT. PT'S BED IN LOWEST POSITION AND CALL LIGHT WITHIN REACH. PT DENIES DIZZINESS WHEN UP OUT OF BED.
[2024-06-05] MEDS ORDERED: Aspirin 81 MG Chew PO SCH (09:00)
[2024-06-05] MEDS ORDERED: Atorvastatin 40 MG Tab PO SCH (09:00)
--- NOTE | 2024-06-05 10:52 | NUR ---
ORTHOSTATIC VITAL SIGNS TAKEN LAYING: BP 147/76 (94), HR 66 SITTING: BP 153/80 (96), HR 75 STANDING: BP 143/77 (95), HR 84
[2024-06-05 11:17] VITALS: BP 138/74
[2024-06-05] MEDS ORDERED: LIPITOR80 MG PO (12:30)
[2024-06-05] MEDS ORDERED: PRASUGREL HCL10 MG PO (12:31)
[2024-06-05] MEDS ORDERED: ASPI81CH PO (12:33)
--- NOTE | 2024-06-05 13:12 | NUR ---
D/C SUMMARY THE PT IS A&OX4, IND IN THE ROOM, CALLS APPROPRAITELY. VS REMAINS STABLE. ON TELE HE WAS SB/SR FHB BBB 40'S-80'S EKG'S TAKEN THIS MORNING PER DR. CLARKE. THE PT HAD ANGIOGRAM 06/04 W/ RIGHT RADIAL ACCESS. THE PT DOES HAVE SOME BRUISING AND TENDERNESS TO HIS RIGHT WRIST. SITE WITH TEGADERM, C/D/I. NO BLEEDING NOTED. STENT CARD WITH THE PATIENT. MEDICATIONS FAXED TO [facility]. ALL BELONGINGS WITH THE PT. HE LEFT AT 1310.
== END 2024-06-05 13:22 | disposition home or self-care (01) | DRG 322 ==
LOC: ER 18:31 → PCU 18:32 → ERHOLD 18:32 → PCU 06-04 04:50
PROVIDERS: Internal Medicine; Student in an Organized Health Care Education/Training Program; ADMIT Internal Medicine
PROC: 027034Z Dilation of Coronary Artery, One Artery with Drug-eluting Intraluminal Device, Percutaneous Approach (ICD-10-PCS; principal; 2024-06-04)
PROC: B2111ZZ Fluoroscopy of Multiple Coronary Arteries using Low Osmolar Contrast (ICD-10-PCS; 2024-06-04)
PROC: 4A023N7 Measurement of Cardiac Sampling and Pressure, Left Heart, Percutaneous Approach (ICD-10-PCS; 2024-06-04)
PROC: B241ZZ3 Ultrasonography of Multiple Coronary Arteries, Intravascular (ICD-10-PCS; 2024-06-04)
DX: I25.10 Atherosclerotic heart disease of native coronary artery without angina pectoris (principal); I95.1 Orthostatic hypotension; R00.1 Bradycardia, unspecified; E03.9 Hypothyroidism, unspecified; I10 Essential (primary) hypertension; E78.5 Hyperlipidemia, unspecified; I44.7 Left bundle-branch block, unspecified; Z79.890 Hormone replacement therapy; Z79.899 Other long term (current) drug therapy; I44.39 Other atrioventricular block; N40.0 Benign prostatic hyperplasia without lower urinary tract symptoms; Z87.19 Personal history of other diseases of the digestive system; Z98.890 Other specified postprocedural states
CPT/HCPCS: 36415; 76937; 80053; 80069; 81003; 83735; 83880; 84436; 84443; 84484; 85025; 85027; 85347; 85379; 92978; 93005; 93010; 93458; 93571; 96360; 96361; 96372; 99152; 99153; 99285-25; A9270; C1725; C1753; C1769; C1874; C1887; C1894; C9600; G0378; J1644; J1650; J2250; J3010; J7030; J7040; J7050; Q9967

== ENCOUNTER 2024-08-22 08:22 | Observation (INO) | payer OTHER, MEDICARE ==
[2024-08-22] VITALS (14 sets, daily range): BP systolic 125–155; BP diastolic 68–85
[~2024-08-22] VITALS: Ht 180.3 cm; Wt 74.4 kg
[~2024-08-22 08:22] MED LIST changes: -Enoxaparin 40 MG/0.4 ML SYR SC SCH; +LIPITOR80 MG PO; +PRASUGREL HCL10 MG PO
[2024-08-22] MEDS ORDERED: NS 1,000 ML IV ONE ×2 (10:34→10:39)
[2024-08-22] MEDS ORDERED: Bupivacaine 0.5% HCl 5 MG/ML 30MLVIAL ONE (10:38)
[2024-08-22] MEDS ORDERED: Heparin Sodium 1000 Units/ML 10ML MDV ONE (10:38)
[2024-08-22] MEDS ORDERED: CeFAZolin Sodium 1000 mg Vial ONE (10:44)
[2024-08-22] MEDS ORDERED: CeFAZolin Sodium 2,000 MG VIAL ONE (10:47)
[2024-08-22] MEDS ORDERED: Midazolam HCl 1MG / ML 2ML Vial ONE ×2 (10:47→11:53)
[2024-08-22] MEDS ORDERED: FentaNYL Citrate 50 MCG/ML 2 ML Injection ONE ×2 (10:48→11:53)
[2024-08-22] MEDS ORDERED: NS 50 ML IV ONE (10:48)
[2024-08-22] MEDS ORDERED: HYDROcodone 5-APAP 325 TAB PO PRN (13:55)
[2024-08-22] MEDS ORDERED: Acetaminophen 325 MG TABLET PO PRN (13:55)
[2024-08-22] MEDS ORDERED: OxyCODONE HCL 5 MG TAB PO PRN (13:55)
[2024-08-22] MEDS ORDERED: Metoprolol Succinate 25 MG TABCR PO SCH (14:00)
--- NOTE | 2024-08-22 14:24 | NUR ---
TRANSFER TO U16: PT [facility]. PT ARRIVES VIA WHEELCHAIR. A&OX4. FOLLOWS COMMANDS AND ANSWERS QUESTIONS APPROPRIATELY. PT ABLE TO WALK TO THE BATHROOM INDEPENDENTLY. DENIES ANY COMPLAINTS OF CP, PRESSURE, TIGHTNESS OR SOB. VSS. MAP >65. PT SITTING UP IN BED EATING FOOD AT THIS TIME. DRESSING IN PLACE TO L CHEST POST PACEMAKER PLACEMENT. AT BEDSIDE. DENIES ANY NEEDS OR COMPLAINTS AT THIS TIME. WILL CONTINUE TO CARE FOR PT TILL END OF SHIFT.
--- NOTE | 2024-08-22 19:10 | NUR ---
TRANSFER TO PCU FROM ED: PT ARRIVES TO PCU11 FROM THE ED VIA GURNEY. PT ARRIES A&OX4. FOLLOWS COMMANDS AND ANSWERS QUESTIONS APPROPRIATELY. VSS. PT HAS A SUPRAPUBIC CATHETER IN PLACE THAT IS DRAINING TO A LEG BAG. PROVIDER AT BEDSIDE TO EVALUATE PT. THIS RN PERFOEMED A BEDSIDE SWALLOW EVAL ON PT PER PROVIDER ORDERS. PT DID NOT APPEAR TO ASPIRATE ON WATER OR APPLE SAUCE. THIS WAS PASSED ONTO ACCIDENT REPORT CLERK. FAMILY AND CAREGIVER AT BEDSIDE. REPORT TO GINA RAYMOND TO ASSUME CARE OF PT.
[2024-08-22] MEDS ORDERED: CeFAZolin Sodium 2,000 MG in NS 100 ML IV SCH (20:00)
[2024-08-23 00:16] VITALS: BP 132/71
[2024-08-23 03:51] LABS: Hematocrit 36.4 % (37.0-53.0); Hemoglobin 12.2 g/dL (13.5-17.5); Mean Corpuscular HGB 30.4 pg (26.0-34.0); Mean Corpuscular HGB Conc 33.5 g/dL (31.5-36.5); Mean Corpuscular Volume 91 fL (80-100); Mean Platelet Volume 9.8 fL (9.1-12.4); Platelet Count 145 K/mm3 (150-400); RDW Coefficient Variation 14.1 % (11.7-14.2); RDW Standard Deviation 47.2 fL (35.1-46.3); Red Blood Cell Count 4.01 M/mm3 (4.30-5.90)
[2024-08-23 04:12] VITALS: BP 123/68
[2024-08-23 04:17] LABS: Bun/Creatinine Ratio 20.8 (12.0-20.0); Calcium, Blood 8.1 mg/dL (8.5-10.1); Creatinine, Blood 0.77 mg/dL (0.60-1.20); Potassium, Blood 4.1 mmol/L (3.5-5.5)
[2024-08-23] MEDS ORDERED: Levothyroxine Sodium 0.025 MG Tab PO SCH (06:00)
--- NOTE | 2024-08-23 06:41 | NUR ---
SHIFT SUMMARY: PT IS A&OX4, PLEASANT AND COOPERATIVE WITH CARE. VSS ON RA. AV PACED AT 60. C/O PAIN TO LEFT UPPER CHEST, MANAGED WITH PRN MEDICATIONS. DRESSING TO RECENTLY PLACED PACEMAKER IS C/D/I. TOLERATING A HEART HEALTHY DIET. UP AD JANEY IN ROOM/BR INDEPENDENTLY, COMPLIANT WITH RESTRICTIONS FOR NEWLY PLACED PACEMAKER. VOIDING ADEQUATE AMOUNTS OF CLEAR, YELLOW URINE. NO BM THIS SHIFT. BED IN LOWEST POSITION, CALL LIGHT WITHIN REACH. CALLS APPROPRIATELY AND IS ABLE TO ADVOCATE NEEDS EFFECTIVELY.
[2024-08-23 08:22] VITALS: BP 125/71
[2024-08-23] MEDS ORDERED: Aspirin 81 MG Chew PO SCH (09:00)
[2024-08-23] MEDS ORDERED: METO25ER PO (09:54)
--- NOTE | 2024-08-23 12:24 | NUR ---
DISCHARGE NOTE PT WAS ALERT AND ORIENTED X 4, HE WAS INDEPENDENT IN THE ROOM. VSS. PACER WAS INTERROGATED THIS AM BY Poynt. DR. SMITH KHAN WAS AT BEDSIDE THIS AM WELL. PAIN REORTED IN L CHEST WALL, COOL APPLICATION APPLIED, ALSO PLEASE SEE EMAR FOR PAIN MANAGEMENT. HE DENIED FEELINGS OF CHEST PAIN/PRESSURE OR SOB. HE DID REPORT FEELING SLIGHTLY DIZZY LAST NIGHT. HE APPEARED STEADY ON HIS FEET AND HAD A GOOD APPETITE. THIS RN PROVIDED DISCHARGE INSTRUCTIONS TO THE PT AND HIS INCLUDING POST PACER PLACEMENT FOLLOW UP APPOINTMENTS, WOUND CARE FOLLOW UP APPOINTMENTS, DISCHARGE MEDICATIONS, ACTIVITY LIMITATIONS INCLUDING SHOWERING. EDUCATIONAL HANDOUTS SEND HOME WITH THE PT WELL. PT LEFT PCU AT APPROX. 1108 W/ ALL OF PERSONAL BELONGINGS.
[2024-08-24] MEDS ORDERED: Atorvastatin 40 MG Tab PO SCH (09:00)
== END 2024-08-23 11:08 | disposition home or self-care (01) ==
LOC: MHTC 08:22 → PCU 08:29 → MHTC 08:30 → PCU 14:05
PROVIDERS: ADMIT Internal Medicine Cardiovascular Disease
DX: I44.1 Atrioventricular block, second degree (principal); I25.10 Atherosclerotic heart disease of native coronary artery without angina pectoris; I10 Essential (primary) hypertension; E03.9 Hypothyroidism, unspecified; Z98.61 Coronary angioplasty status; Z79.82 Long term (current) use of aspirin; Z79.890 Hormone replacement therapy; Z79.899 Other long term (current) drug therapy
CPT/HCPCS: 33208; 36415; 71046; 80048; 85027; 93005; 93010; 96365; 96366; 99152; 99153; A9270; C1785; C1898; G0378; J0690; J1644; J2250; J3010; J7030; J7040; Q9967

== ENCOUNTER 2024-09-01 00:42 | Observation (INO) | payer OTHER, MEDICARE ==
[~2024-09-01] VITALS: Ht 180.3 cm; Wt 74.6 kg
[~2024-09-01 00:42] MED LIST changes: +METO25ER PO
[2024-09-01 01:01] LABS: BASOPHILS ABSOLUTE AUTO 0.02 K/mm3 (0.00-0.23); BASOPHILS PERCENT AUTO 0 % (0-2); EOSINOPHILS ABSOLUTE AUTO 0.09 K/mm3 (0.00-0.68); EOSINOPHILS PERCENT AUTO 1 % (0-6); Hematocrit 36.1 % (37.0-53.0); Hemoglobin 11.9 g/dL (13.5-17.5); IMMATURE GRAN ABSOLUTE AUTO 0.03 K/mm3 (0.00-0.10); IMMATURE GRAN PERCENT AUTO 0 % (0-1); LYMPHOCYTES ABSOLUTE AUTO 2.69 K/mm3 (0.84-5.20); LYMPHOCYTES PERCENT AUTO 32 % (21-46); MONOCYTES ABSOLUTE AUTO 1.29 K/mm3 (0.16-1.47); MONOCYTES PERCENT AUTO 15 % (4-13); Mean Corpuscular HGB 30.1 pg (26.0-34.0); Mean Corpuscular Volume 91 fL (80-100); Mean Platelet Volume 9.3 fL (9.1-12.4); NEUTROPHILS ABSOLUTE AUTO 4.35 K/mm3 (1.96-9.15); NEUTROPHILS PERCENT AUTO 51 % (41-73); Platelet Count 189 K/mm3 (150-400); RDW Coefficient Variation 14.3 % (11.7-14.2); RDW Standard Deviation 47.9 fL (35.1-46.3); Red Blood Cell Count 3.95 M/mm3 (4.30-5.90); White Blood Cell Count 8.47 K/mm3 (4.00-11.30)
[2024-09-01] MEDS ORDERED: Aspirin 325 MG Tab PO ONE (01:10)
[2024-09-01 01:21] LABS: Albumin, Blood 3.6 g/dL (3.4-5.0); Albumin/Globulin Ratio 0.9 (0.8-1.8); Bilirubin, Total 0.5 mg/dL (0.1-1.0); Bun/Creatinine Ratio 24.9 (12.0-20.0); Calcium, Blood 8.6 mg/dL (8.5-10.1); Creatinine, Blood 0.8 mg/dL (0.60-1.20); Globulin, Blood 4.2 g/dL (2.2-4.0); Potassium, Blood 4.1 mmol/L (3.5-5.5); Total Protein, Blood 7.8 g/dL (6.4-8.2)
[2024-09-01] MEDS ORDERED: Nitroglycerin 0.4 MG SUBL SL PRN ×2 (02:15→05:10)
[2024-09-01] MEDS ORDERED: FentaNYL Citrate 50 MCG/ML 2 ML Injection IV ONE ×2 (02:55→05:40)
[2024-09-01] MEDS ORDERED: Mag Hydrox/AL Hydrox/Simeth 30 ML UDC PO ONE (03:05)
[2024-09-01] MEDS ORDERED: Lidocaine 2% Viscous Soln 15 ML UDC PO ONE (03:05)
[2024-09-01] MEDS ORDERED: Acetaminophen 325 MG TABLET PO PRN (05:05)
[2024-09-01] MEDS ORDERED: Morphine Sulfate 4 MG/1 ML Injection IV PRN (05:10)
[2024-09-01] MEDS ORDERED: Ondansetron HCl 2 MG / ML 2ML Vial IV PRN ×2 (05:10→16:20)
[2024-09-01] MEDS ORDERED: Levothyroxine Sodium 0.025 MG Tab PO SCH (06:00)
[2024-09-01] MEDS ORDERED: Ketorolac Tromethamine 30mg Vial IV ONE (07:30)
[2024-09-01 08:20] VITALS: BP 124/69
[2024-09-01] MEDS ORDERED: Ketorolac Tromethamine 15mg Vial IV PRN (08:50)
[2024-09-01] MEDS ORDERED: Metoprolol Succinate 25 MG TABCR PO SCH (09:00)
[2024-09-01] MEDS ORDERED: prasugrel HCL 10 MG TABLET PO SCH (09:00)
[2024-09-01] MEDS ORDERED: Aspirin 81 MG Chew PO SCH (09:00)
[2024-09-01] MEDS ORDERED: Atorvastatin 40 MG Tab PO SCH (09:00)
[2024-09-01] MEDS ORDERED: prasugrel HCL 10 MG TABLET PO ONE (09:30)
--- NOTE | 2024-09-01 10:03 | NUR ---
am note patient arrived to pcu from er at 0813 and transfered from [facility] to pcu bed independently. patient at bedside. patient vital signs stable. medical status with tele. tele v paced 80s. patient upon arrival reported chest pain at 4, on the numeric scale, and described it as a dull ache. patient is alert and oriented x4. neuro is intact. perrla. patient is able to make needs known and uses call light appropriately. independent in adls and educated to call before getting up for safety. patient has pacer bandage still intact and was supposed to do wound check this morning. see admit shift assessment for further detials. Md Denney in to see patient approx 0900 and ordered additional pain medication, and spoke with Md Vu. Md Arizmendi in to see patient at 0930 and spoke with of resuming pragugel and to do a loading dose. Echo in room during this time. Discussed plan for repeat stress test. Syed from [facility]uc med called and patient to have first part of stress test at 1100 today (09/01/24), and then to be npo at midnight besdies water for the second part tomorrow (09/02/24). patient report pain increase to 5, and patient received pain medication at approx 1000. admit meds and initial complete.
[2024-09-01 11:17] VITALS: BP 138/68
[2024-09-01] MEDS ORDERED: LORazepam 0.5 MG Tab PO PRN (12:10)
[2024-09-01] MEDS ORDERED: Lidocaine 4% 1 Patch TOP ONE (15:05)
[2024-09-01 16:04] VITALS: BP 155/73
--- NOTE | 2024-09-01 16:15 | NUR ---
update this rn called md crowell to notify of patient chest pain and unable to offer anymore pain medication due not being in the time frame window. md order ct pe study and repeat tropponin.
--- NOTE | 2024-09-01 16:29 | NUR ---
UPDATE patient had an episode of vomitting and increased chest pain. patient receive iv zofran and repeat ekg done. aminta toirbio rn called md crowell and md crowell to room and assessing the ekg, whom called md conn. patient states since episode of vomitting that pain has decreased and can breath easier.
[2024-09-01] MEDS ORDERED: Mag Hydrox/Al Hydrox/Simeth 72 ML,Lidocaine 2% Viscous Soln 36 ML,Atropine/Scopalam/Hyo... PO PRN (16:45)
--- NOTE | 2024-09-01 18:27 | NUR ---
shift summary see previous notes. no acute changes since previous notes. vital signs stable. plan to have stress test tomorrow morning and npo at midnight besides water and meds. patient chest pain has improved since episode of vomitting earlier. plan remains up to date.
[2024-09-01 19:31] VITALS: BP 146/69
[2024-09-01] MEDS ORDERED: Famotidine 10 MG/ML 2ML Vial IV SCH (21:00)
[2024-09-02 05:15] VITALS: BP 143/73
--- NOTE | 2024-09-02 05:23 | NUR ---
SHIFT SUMMARY PT ALERT AND ORIENTED X4. ABLE TO MAKE NEEDS KNOWN. AMBULATING IN ROOM INDEPENDENTLY. PT REPORTS MILD AND DULL CHEST PAIN AT 2/10. ON TELE, V-PACED RHYTHM 80S-90S. BP STABLE. USING URINAL WITH ADEQUATE OUTPUT. PT NPO SINCE MIDNIGHT EXCEPT WATER, AWAITING STRESS TEST IN AM. NO OTHER CHANGES.
[2024-09-02 06:04] LABS: BASOPHILS ABSOLUTE AUTO 0.02 K/mm3 (0.00-0.23); BASOPHILS PERCENT AUTO 0 % (0-2); EOSINOPHILS ABSOLUTE AUTO 0.01 K/mm3 (0.00-0.68); EOSINOPHILS PERCENT AUTO 0 % (0-6); Hematocrit 33.4 % (37.0-53.0); Hemoglobin 11.2 g/dL (13.5-17.5); IMMATURE GRAN ABSOLUTE AUTO 0.04 K/mm3 (0.00-0.10); IMMATURE GRAN PERCENT AUTO 1 % (0-1); LYMPHOCYTES ABSOLUTE AUTO 1.62 K/mm3 (0.84-5.20); LYMPHOCYTES PERCENT AUTO 20 % (21-46); MONOCYTES PERCENT AUTO 18 % (4-13); Mean Corpuscular HGB 30.2 pg (26.0-34.0); Mean Corpuscular HGB Conc 33.5 g/dL (31.5-36.5); Mean Corpuscular Volume 90 fL (80-100); Mean Platelet Volume 9.4 fL (9.1-12.4); NEUTROPHILS ABSOLUTE AUTO 5.05 K/mm3 (1.96-9.15); NEUTROPHILS PERCENT AUTO 61 % (41-73); Platelet Count 160 K/mm3 (150-400); RDW Coefficient Variation 14.6 % (11.7-14.2); RDW Standard Deviation 47.7 fL (35.1-46.3); Red Blood Cell Count 3.71 M/mm3 (4.30-5.90); White Blood Cell Count 8.24 K/mm3 (4.00-11.30)
[2024-09-02 06:29] LABS: Calcium, Blood 8.2 mg/dL (8.5-10.1); Creatinine, Blood 0.84 mg/dL (0.60-1.20); Potassium, Blood 4.1 mmol/L (3.5-5.5)
[2024-09-02 07:18] VITALS: BP 125/72
[2024-09-02] MEDS ORDERED: Caffeine Citrated 60 MG/3 ML Vial ONE (07:37)
[2024-09-02] MEDS ORDERED: Aminophylline 250MG / 10ML 10 ML Vial ONE (07:37)
[2024-09-02] MEDS ORDERED: Regadenoson 0.4 MG/5 ML SYRINGE ONE (07:38)
--- NOTE | 2024-09-02 09:11 | NUR ---
am note this rn assumed care at 0700. blood pressure hypertensive and received morning blood pressure medication. tele sinus rhyhthm/sinus tach 90-100s. spo2 >95% on room air. patient is alert and oriented x4. neuro is intact. patient can make needs known and uses call light appropriately. patient is independent in the room and adls. see shift assessment for further detials. Md Soto in to see patient at 0715 and informed plan for patient is to discharge home today. Md Lewis in room to see patient at 0830 and agreed that plan for patient to discharge home today.
--- NOTE | 2024-09-02 09:15 | NUR ---
am note this rn assumed care at 0700. vital signs stable. tele v paced 77. patient had second part of stress test this morning at 0730 and is currently down in imaging getting the pictures taken patient is alert and oriented x4. neuro is intact. perrla. patient can make needs known and uses call light appropriately. denies pain, chest pain/pressure or shortness of breath. see shift assessment for further detials. Md Denney in to see patient around 0815 and discussed plan of completing stress test and if the results are negative for patient to go home today. Md Denney discussed that this appears more gastric vs cardiac with the patient. Pending results patient will go home today.
[2024-09-02] MEDS ORDERED: PRASUGREL HCL10 MG PO (12:22)
[2024-09-02] MEDS ORDERED: FAMO20 PO (12:22)
[2024-09-02 12:33] VITALS: BP 136/68
--- NOTE | 2024-09-02 12:38 | NUR ---
DISCHARGE EDUCATION this rn went over discharge education with the patient and new medication and follow up appointments. patieint verablized understanding. patient discharge vitals stable. patient packing up belongings and awaiting for to get here.
== END 2024-09-02 13:10 | disposition home or self-care (01) ==
LOC: ER 00:42 → ERHOLD 00:43 → PCU 00:43
PROVIDERS: Family Medicine; Student in an Organized Health Care Education/Training Program; ADMIT Student in an Organized Health Care Education/Training Program
DX: I25.118 Atherosclerotic heart disease of native coronary artery with other forms of angina pectoris (principal); E03.9 Hypothyroidism, unspecified; E78.5 Hyperlipidemia, unspecified; I11.0 Hypertensive heart disease with heart failure; I50.9 Heart failure, unspecified; Z79.899 Other long term (current) drug therapy; Z95.0 Presence of cardiac pacemaker
CPT/HCPCS: 36415; 71046; 71260; 78452; 80048; 80053; 84484; 85025; 93005; 93010; 93017; 93306; 94762; 96374; 96375; 96376; 99285-25; A9270; A9500; G0378; J0280; J0706; J1885; J2270; J2405; J2785; J3010; Q9967

== ENCOUNTER → 2025-04-17 | Outpatient (CLI) | payer OTHER, MEDICARE ==
[~2025-04-17] MED LIST changes: +FAMO20 PO
[2025-04-17 16:02] LABS: Hematocrit 38.3 % (37.0-53.0); Hemoglobin 12.5 g/dL (13.5-17.5); Mean Corpuscular HGB Conc 32.6 g/dL (31.5-36.5); Mean Corpuscular Volume 90 fL (80-100); NRBC ABSOLUTE 0.00 K/mm3 (0.00-0.02); NRBC Auto 0.0 /100 WBC (0.0-0.2); Platelet Count 162 K/mm3 (150-400); RDW Coefficient Variation 14.5 % (11.7-14.2); RDW Standard Deviation 47.7 fL (35.1-46.3)
[2025-04-17 16:06] LABS: Alanine Aminotransfer (ALT/SGP 39.0 U/L (12-78); Albumin, Blood 4.1 g/dL (3.4-5.0); Albumin/Globulin Ratio 1.0 (0.8-1.8); Anion Gap 6.0 mmol/L (3-11); Aspartate Aminotrans (AST/SGOT 29.0 U/L (12-37); Bilirubin, Total 0.8 mg/dL (0.1-1.0); Blood Urea Nitrogen 17.0 mg/dL (8-24); CO2, Blood 30.0 mmol/L (21-32); Calcium, Blood 9.0 mg/dL (8.5-10.1); Chloride, Blood 107.0 mmol/L (98-108); Creatinine, Blood 0.85 mg/dL (0.60-1.20); Globulin, Blood 4.1 g/dL (2.2-4.0); Glucose, Blood 87.0 mg/dL (70-99); Potassium, Blood 4.5 mmol/L (3.5-5.5); Sodium, Blood 138.0 mmol/L (136-145); Total Protein, Blood 8.2 g/dL (6.4-8.2)
[2025-04-17 17:00] LABS: BASOPHILS ABSOLUTE MAN 0.00 K/mm3 (0.00-0.23); BASOPHILS PERCENT MAN 0 % (0-2); EOSINOPHILS ABSOLUTE MAN 0.03 K/mm3 (0.00-0.68); EOSINOPHILS PERCENT MAN 1 % (0-6); LYMPHOCYTES % ATYPICAL MANUAL 1 % (0-0); LYMPHOCYTES ABSOLUTE MAN 1.07 K/mm3 (0.84-5.20); LYMPHOCYTES PERCENT MAN 26 % (21-46); MONOCYTES ABSOLUTE MAN 0.43 K/mm3 (0.16-1.47); MONOCYTES PERCENT MAN 11 % (4-13); NEUTROPHILS ABSOLUTE MAN 2.43 K/mm3 (1.96-9.15); SEG NEUTROPHILS PERCENT MAN 61 % (41-73)
== END ==
LOC: LAB 10:50 → LAB SHORT 10:50
PROVIDERS: Nurse Practitioner
DX: R10.31 Right lower quadrant pain (principal)
CPT/HCPCS: 80053; 85007; 85027

== ENCOUNTER 2025-04-19 11:00 | Emergency (ER) | payer OTHER, MEDICARE ==
[~2025-04-19] VITALS: Ht 180.3 cm; Wt 79.4 kg
[2025-04-19] MEDS ORDERED: Ketorolac Tromethamine 30mg Vial IV ONE ×2 (12:00→14:00)
[2025-04-19 13:05] LABS: Source, Urine Clean Catch
[2025-04-19 13:06] LABS: BASOPHILS ABSOLUTE AUTO 0.01 K/mm3 (0.00-0.23); BASOPHILS PERCENT AUTO 0 % (0-2); EOSINOPHILS ABSOLUTE AUTO 0.03 K/mm3 (0.00-0.68); EOSINOPHILS PERCENT AUTO 1 % (0-6); Hematocrit 38.0 % (37.0-53.0); Hemoglobin 12.9 g/dL (13.5-17.5); IMMATURE GRAN ABSOLUTE AUTO 0.01 K/mm3 (0.00-0.10); IMMATURE GRAN PERCENT AUTO 0 % (0-1); LYMPHOCYTES ABSOLUTE AUTO 1.70 K/mm3 (0.84-5.20); LYMPHOCYTES PERCENT AUTO 38 % (21-46); MONOCYTES ABSOLUTE AUTO 0.56 K/mm3 (0.16-1.47); MONOCYTES PERCENT AUTO 12 % (4-13); Mean Corpuscular HGB Conc 33.9 g/dL (31.5-36.5); Mean Corpuscular Volume 89 fL (80-100); NEUTROPHILS ABSOLUTE AUTO 2.20 K/mm3 (1.96-9.15); NEUTROPHILS PERCENT AUTO 49 % (41-73); NRBC ABSOLUTE 0.00 K/mm3 (0.00-0.02); NRBC Auto 0.0 /100 WBC (0.0-0.2); Platelet Count 157 K/mm3 (150-400); RDW Coefficient Variation 14.2 % (11.7-14.2); RDW Standard Deviation 45.7 fL (35.1-46.3)
[2025-04-19 13:08] LABS: Bilirubin, Urine Neg (Neg); Glucose Qualitative, Urine Neg (Neg); Ketones, Urine Neg (Neg); Leukocyte Esterase, Urine Neg (Neg); Protein, Urine 1+ (Neg); Specific Gravity, Urine 1.010 (1.003-1.022); Urobilinogen, Urine NORM (Normal)
[2025-04-19 13:27] LABS: Color, Urine Pale Yellow (P-Yellow)
[2025-04-19 13:32] LABS: C-REACTIVE PROTEIN, EXT RANGE <0.290 mg/dL (0.000-0.300)
[2025-04-19 13:44] LABS: Alanine Aminotransfer (ALT/SGP 42 U/L (12-78); Albumin, Blood 4.2 g/dL (3.4-5.0); Albumin/Globulin Ratio 1.0 (0.8-1.8); Anion Gap 4 mmol/L (3-11); Aspartate Aminotrans (AST/SGOT 34 U/L (12-37); Bilirubin, Total 1.1 mg/dL (0.1-1.0); Blood Urea Nitrogen 18 mg/dL (8-24); CO2, Blood 29 mmol/L (21-32); Calcium, Blood 8.9 mg/dL (8.5-10.1); Chloride, Blood 108 mmol/L (98-108); Creatinine, Blood 0.90 mg/dL (0.60-1.20); Globulin, Blood 4.0 g/dL (2.2-4.0); Glucose, Blood 99 mg/dL (70-99); Potassium, Blood 4.1 mmol/L (3.5-5.5); Sodium, Blood 137 mmol/L (136-145); Total Protein, Blood 8.2 g/dL (6.4-8.2)
[2025-04-19] MEDS ORDERED: OxyCODONE 5 mg/Acetamin 325 mg TABLET PO ONE (15:05)
[2025-04-19] MEDS ORDERED: GABA300 PO (15:05)
[2025-04-19 15:30] VITALS: BP 147/80
== END 2025-04-19 15:35 | disposition home or self-care (01) ==
LOC: ER 11:00
PROVIDERS: Student in an Organized Health Care Education/Training Program
DX: R10.31 Right lower quadrant pain (principal); E78.5 Hyperlipidemia, unspecified; I10 Essential (primary) hypertension; Z79.890 Hormone replacement therapy; Z79.82 Long term (current) use of aspirin; Z79.899 Other long term (current) drug therapy
CPT/HCPCS: 76857; 76870; 80053; 85025; 85651; 86140; 96374; 99284-25; A9270; J1885